=== PATIENT | female | born 1985 | race Caucasian/White ===

== ENCOUNTER 2017-04-16 13:43 | Emergency (ER) | payer OTHER ==
[2017-04-16 17:27] VITALS: BP 118/82
== END 2017-04-16 17:27 | disposition home or self-care (01) ==
LOC: ED 13:43
DX: S46.912A Strain of unspecified muscle, fascia and tendon at shoulder and upper arm level, left arm, initial encounter (principal); R07.89 Other chest pain; R51 Headache; Z88.5 Allergy status to narcotic agent; X58.XXXA Exposure to other specified factors, initial encounter; Y93.89 Activity, other specified; Y99.8 Other external cause status; Y92.89 Other specified places as the place of occurrence of the external cause
CPT/HCPCS: 82962; J1885

== ENCOUNTER 2018-02-10 03:37 | Emergency (ER) | payer OTHER ==
[2018-02-10 04:53] VITALS: BP 145/90
== END 2018-02-10 04:53 | disposition home or self-care (01) ==
LOC: ED 03:37
DX: H66.92 Otitis media, unspecified, left ear (principal); J02.9 Acute pharyngitis, unspecified; Z88.5 Allergy status to narcotic agent
CPT/HCPCS: J1885

== ENCOUNTER 2018-11-23 15:35 | Inpatient (IN) | payer OTHER ==
[~2018-11-23] VITALS: Ht 160 cm; Wt 152.0 kg
[2018-11-23 16:10] VITALS: Ht 160 cm; Wt 152.0 kg
[2018-11-23 18:30] LABS: BASOPHIL % 0.4 % (0-2); PLATELET COUNT 186 x10^3mcL (130-400); RED CELL DISTRIBUTION WIDTH 13.5 % (11.5-14.5)
[2018-11-23 18:51] LABS: CALCIUM 8.8 mg/dL (8.5-10.1); CARBON DIOXIDE 28.9 mmol/L (21-32); CHLORIDE SERUM 104 mmol/L (98-107); CREATININE SERUM 0.7 mg/dL (0.6-1.0); GFR1 > 60 mL/min; GLUCOSE SERUM 111 mg/dL (74-106); POTASSIUM SERUM 3.7 mmol/L (3.5-5.1); SODIUM SERUM 140 mmol/L (136-145)
[2018-11-23 18:55] LABS: ALBUMIN 3.6 g/dL (3.4-5.0); ALKALINE PHOSPHATASE 113 U/L (46-116); ALT/SGPT 55 U/L (14-59); AST/SGOT 40 U/L (15-37); BILIRUBIN TOTAL 0.37 mg/dL (0.20-1.00); TOTAL PROTEIN, SERUM 7.9 g/dL (6.4-8.2)
[2018-11-23 20:58] VITALS: BP 142/79
[2018-11-24 05:29] VITALS: BP 102/53
[2018-11-24 06:18] LABS: BASOPHIL % 0.3 % (0-2); PLATELET COUNT 174 x10^3mcL (130-400); RED CELL DISTRIBUTION WIDTH 13.7 % (11.5-14.5)
[2018-11-24 06:36] LABS: ALKALINE PHOSPHATASE 92 U/L (46-116); ALT/SGPT 57 U/L (14-59); AST/SGOT 33 U/L (15-37); BILIRUBIN TOTAL 0.8 mg/dL (0.20-1.00); CALCIUM 8.9 mg/dL (8.5-10.1); CHLORIDE SERUM 103 mmol/L (98-107); CREATININE SERUM 0.8 mg/dL (0.6-1.0); GFR1 > 60 mL/min; GLUCOSE SERUM 90 mg/dL (74-106); POTASSIUM SERUM 3.6 mmol/L (3.5-5.1); SODIUM SERUM 137 mmol/L (136-145); TOTAL PROTEIN, SERUM 7.3 g/dL (6.4-8.2)
[2018-11-24 06:38] LABS: ALBUMIN 3.2 g/dL (3.4-5.0)
[2018-11-24 09:46] VITALS: BP 121/61
[2018-11-24] MEDS ORDERED: TOPROL XL25 MG PO (12:36)
[2018-11-24 13:55] VITALS: BP 136/79
[2018-11-24 14:13] VITALS: BP 136/79
== END 2018-11-24 15:50 | disposition home or self-care (01) | DRG 199 ==
LOC: ED 15:35 → DU 19:52
PROVIDERS: Emergency Medicine; Internal Medicine Pulmonary Disease; ADMIT Internal Medicine Pulmonary Disease
DX: I16.1 Hypertensive emergency (principal); I24.9 Acute ischemic heart disease, unspecified; E66.01 Morbid (severe) obesity due to excess calories; I10 Essential (primary) hypertension; Z88.5 Allergy status to narcotic agent
CPT/HCPCS: 83880; Q0092

== ENCOUNTER 2018-11-30 23:40 | Emergency (ER) | payer OTHER ==
[~2018-11-30] VITALS: Ht 160 cm; Wt 152.0 kg
[~2018-11-30 23:40] MED LIST: TOPROL XL25 MG PO
[2018-11-30 23:48] VITALS: Ht 160 cm; Wt 152.0 kg
[2018-12-01 02:30] LABS: CALCIUM 8.8 mg/dL (8.5-10.1); CARBON DIOXIDE 28.3 mmol/L (21-32); CHLORIDE SERUM 102 mmol/L (98-107); CREATININE SERUM 0.9 mg/dL (0.6-1.0); GFR1 > 60 mL/min; GLUCOSE SERUM 128 mg/dL (74-106); POTASSIUM SERUM 4.2 mmol/L (3.5-5.1); SODIUM SERUM 137 mmol/L (136-145)
[2018-12-01 02:32] LABS: BASOPHIL % 0.1 % (0-2); PLATELET COUNT 168 x10^3mcL (130-400); RED CELL DISTRIBUTION WIDTH 13.7 % (11.5-14.5)
[2018-12-01 02:34] LABS: ALBUMIN 3.5 g/dL (3.4-5.0); ALKALINE PHOSPHATASE 112 U/L (46-116); ALT/SGPT 34 U/L (14-59); AST/SGOT 19 U/L (15-37); BILIRUBIN TOTAL 0.5 mg/dL (0.20-1.00); LIPASE 116 IU/L (73-393); TOTAL PROTEIN, SERUM 7.6 g/dL (6.4-8.2)
[2018-12-01 03:48] VITALS: BP 132/73
== END 2018-12-01 04:11 | disposition home or self-care (01) ==
LOC: ED 23:40
PROVIDERS: Emergency Medicine
DX: R07.89 Other chest pain (principal); Z88.5 Allergy status to narcotic agent
CPT/HCPCS: 36415; Q0092

== ENCOUNTER 2018-12-11 11:31 | Emergency (ER) | payer OTHER ==
[~2018-12-11] VITALS: Ht 165.1 cm; Wt 147.5 kg
[2018-12-11 11:46] VITALS: Ht 165.1 cm; Wt 147.5 kg
[2018-12-11 13:42] VITALS: BP 153/80
== END 2018-12-11 13:42 | disposition home or self-care (01) ==
LOC: ED 11:31
DX: R51 Headache (principal); I10 Essential (primary) hypertension; Z88.5 Allergy status to narcotic agent

== ENCOUNTER 2018-12-15 14:38 | Emergency (ER) | payer OTHER ==
[~2018-12-15] VITALS: Ht 160 cm; Wt 146.1 kg
[2018-12-15 14:53] VITALS: Ht 160 cm; Wt 146.1 kg
[2018-12-15 18:03] VITALS: BP 125/64
== END 2018-12-15 18:03 | disposition home or self-care (01) ==
LOC: ED 14:38
DX: R51 Headache (principal); R07.89 Other chest pain; I10 Essential (primary) hypertension; Z88.5 Allergy status to narcotic agent
CPT/HCPCS: J1885

== ENCOUNTER 2019-01-08 13:39 | Emergency (ER) | payer OTHER ==
[~2019-01-08] VITALS: Ht 162.6 cm; Wt 144.7 kg
[2019-01-08 13:44] VITALS: Ht 162.6 cm; Wt 144.7 kg
[2019-01-08 14:34] LABS: BASOPHIL % 1.1 % (0-2); PLATELET COUNT 163 x10^3mcL (130-400); RED CELL DISTRIBUTION WIDTH 14.1 % (11.5-14.5)
[2019-01-08 14:57] LABS: CALCIUM 9.3 mg/dL (8.5-10.1); CARBON DIOXIDE 31.8 mmol/L (21-32); CHLORIDE SERUM 101 mmol/L (98-107); CREATININE SERUM 0.8 mg/dL (0.6-1.0); GFR1 > 60 mL/min; GLUCOSE SERUM 104 mg/dL (74-106); POTASSIUM SERUM 3.9 mmol/L (3.5-5.1); SODIUM SERUM 140 mmol/L (136-145)
[2019-01-08 15:01] LABS: ALBUMIN 3.4 g/dL (3.4-5.0); ALKALINE PHOSPHATASE 101 U/L (46-116); ALT/SGPT 56 U/L (14-59); AST/SGOT 31 U/L (15-37); BILIRUBIN TOTAL 0.5 mg/dL (0.20-1.00); TOTAL PROTEIN, SERUM 7.3 g/dL (6.4-8.2)
[2019-01-08 15:43] LABS: AMPHETAMINE QUAL UR NONE DETECTED (See below)
[2019-01-08 15:46] VITALS: BP 106/68
== END 2019-01-08 15:50 | disposition home or self-care (01) ==
LOC: ED 13:39
PROVIDERS: Emergency Medicine
DX: R07.89 Other chest pain (principal); E66.9 Obesity, unspecified; I10 Essential (primary) hypertension; Z68.43 Body mass index [BMI] 50.0-59.9, adult; Z88.5 Allergy status to narcotic agent
CPT/HCPCS: 36415

== ENCOUNTER 2019-03-25 18:01 | Emergency (ER) | payer OTHER ==
[~2019-03-25] VITALS: Ht 160 cm; Wt 137.9 kg
[2019-03-25 18:54] VITALS: Ht 160 cm; Wt 137.9 kg
[2019-03-25 19:27] LABS: BASOPHIL % 0.4 % (0-2); PLATELET COUNT 167 x10^3mcL (130-400); RED CELL DISTRIBUTION WIDTH 14.1 % (11.5-14.5)
[2019-03-25 19:36] LABS: CALCIUM 9.1 mg/dL (8.5-10.1); CARBON DIOXIDE 27.3 mmol/L (21-32); CHLORIDE SERUM 102 mmol/L (98-107); CREATININE SERUM 0.9 mg/dL (0.6-1.0); GFR1 > 60 mL/min; GLUCOSE SERUM 110 mg/dL (74-106); POTASSIUM SERUM 3.8 mmol/L (3.5-5.1); SODIUM SERUM 139 mmol/L (136-145)
[2019-03-25 19:40] LABS: ALKALINE PHOSPHATASE 114 U/L (46-116); ALT/SGPT 56 U/L (14-59); AST/SGOT 28 U/L (15-37); BILIRUBIN TOTAL 0.65 mg/dL (0.20-1.00); LIPASE 109 IU/L (73-393); TOTAL PROTEIN, SERUM 7.3 g/dL (6.4-8.2)
[2019-03-25 19:41] LABS: ALBUMIN 3.3 g/dL (3.4-5.0)
[2019-03-25 23:31] LABS: UA SPECIFIC GRAVITY <=1.005 (1.005-1.035); microscopic required? YES; urine erythrocyte NEGATIVE (NEGATIVE)
[2019-03-26 00:23] VITALS: BP 140/84
== END 2019-03-26 00:23 | disposition home or self-care (01) ==
LOC: ED 18:01
PROVIDERS: Emergency Medicine
DX: K80.70 Calculus of gallbladder and bile duct without cholecystitis without obstruction (principal); I10 Essential (primary) hypertension; E66.01 Morbid (severe) obesity due to excess calories; Z68.43 Body mass index [BMI] 50.0-59.9, adult; Z88.5 Allergy status to narcotic agent
CPT/HCPCS: J2405; J3010; J7030

== ENCOUNTER 2019-04-22 11:21 | Emergency (ER) | payer OTHER ==
[~2019-04-22] VITALS: Ht 160 cm; Wt 135.2 kg
[2019-04-22 11:27] VITALS: Ht 160 cm; Wt 135.2 kg
[2019-04-22 11:59] LABS: CALCIUM 8.9 mg/dL (8.5-10.1); CARBON DIOXIDE 24.2 mmol/L (21-32); CHLORIDE SERUM 105 mmol/L (98-107); CREATININE SERUM 0.8 mg/dL (0.6-1.0); GFR1 > 60 mL/min; GLUCOSE SERUM 97 mg/dL (74-106); POTASSIUM SERUM 4.1 mmol/L (3.5-5.1); SODIUM SERUM 140 mmol/L (136-145)
[2019-04-22 12:00] LABS: BASOPHIL % 0.4 % (0-2); PLATELET COUNT 157 x10^3mcL (130-400); RED CELL DISTRIBUTION WIDTH 13.4 % (11.5-14.5)
[2019-04-22 12:10] LABS: ALBUMIN 3.5 g/dL (3.4-5.0); ALKALINE PHOSPHATASE 104 U/L (46-116); ALT/SGPT 33 U/L (14-59); AST/SGOT 20 U/L (15-37); BILIRUBIN TOTAL 0.69 mg/dL (0.20-1.00); TOTAL PROTEIN, SERUM 7.4 g/dL (6.4-8.2)
[2019-04-22 12:41] LABS: microscopic required? YES; urine erythrocyte NEGATIVE (NEGATIVE)
[2019-04-22 12:44] LABS: HDL CHOLESTEROL 39 mg/dL (40-60); LIPASE 85 IU/L (73-393)
[2019-04-22 12:48] LABS: CHOLESTEROL 133 mg/dL (<200)
[2019-04-22 13:17] VITALS: BP 123/64
== END 2019-04-22 14:59 | disposition home or self-care (01) ==
LOC: ED 11:21
PROVIDERS: Emergency Medicine
DX: K80.70 Calculus of gallbladder and bile duct without cholecystitis without obstruction (principal); I10 Essential (primary) hypertension; E66.01 Morbid (severe) obesity due to excess calories; Z68.43 Body mass index [BMI] 50.0-59.9, adult; Z88.5 Allergy status to narcotic agent
CPT/HCPCS: 36415; Q0092

== ENCOUNTER 2020-02-12 01:54 | Emergency (ER) | payer OTHER ==
[~2020-02-12] VITALS: Ht 160 cm; Wt 143.8 kg
[2020-02-12 02:03] VITALS: Ht 160 cm; Wt 143.8 kg
[2020-02-12 04:22] LABS: BASOPHIL % 0.3 % (0-2); PLATELET COUNT 143 x10^3mcL (130-400); RED CELL DISTRIBUTION WIDTH 13.3 % (11.5-14.5)
[2020-02-12 04:27] LABS: CARBON DIOXIDE 30.2 mmol/L (21-32); CHLORIDE SERUM 100 mmol/L (98-107); CREATININE SERUM 0.9 mg/dL (0.6-1.0); GFR1 > 60 mL/min; GLUCOSE SERUM 133 mg/dL (74-106); POTASSIUM SERUM 3.6 mmol/L (3.5-5.1); SODIUM SERUM 137 mmol/L (136-145)
[2020-02-12 04:31] LABS: ALKALINE PHOSPHATASE 117 U/L (46-116); ALT/SGPT 31 U/L (14-59); AST/SGOT 18 U/L (15-37); BILIRUBIN TOTAL 0.59 mg/dL (0.20-1.00)
[2020-02-12 04:38] LABS: ALBUMIN 3.2 g/dL (3.4-5.0)
[2020-02-12 05:22] LABS: UA SPECIFIC GRAVITY 1.025 (1.005-1.035); microscopic required? YES
[2020-02-12 05:23] LABS: urine erythrocyte TRACE (NEGATIVE)
[2020-02-12 06:11] VITALS: BP 103/55
== END 2020-02-12 06:11 | disposition home or self-care (01) ==
LOC: ED 01:54
PROVIDERS: Emergency Medicine
DX: N20.0 Calculus of kidney (principal); N39.0 Urinary tract infection, site not specified; E66.9 Obesity, unspecified; I10 Essential (primary) hypertension; Z68.43 Body mass index [BMI] 50.0-59.9, adult; Z88.5 Allergy status to narcotic agent
CPT/HCPCS: J0696; J1885; J2405; J7030; J7060

== ENCOUNTER 2020-05-23 16:17 | Emergency (ER) | payer OTHER ==
[~2020-05-23] VITALS: Ht 160 cm; Wt 142.9 kg
[2020-05-23 17:52] LABS: CALCIUM 9.2 mg/dL (8.5-10.1); CARBON DIOXIDE 29.8 mmol/L (21-32); CHLORIDE SERUM 99 mmol/L (98-107); CREATININE SERUM 0.9 mg/dL (0.6-1.0); GFR1 > 60 mL/min; GLUCOSE SERUM 129 mg/dL (74-106); POTASSIUM SERUM 3.7 mmol/L (3.5-5.1); SODIUM SERUM 135 mmol/L (136-145)
[2020-05-23 17:53] LABS: BASOPHIL % 0.1 % (0-2); PLATELET COUNT 176 x10^3mcL (130-400)
[2020-05-23 20:27] VITALS: BP 129/77
== END 2020-05-23 20:27 | disposition home or self-care (01) ==
LOC: ED 16:17
PROVIDERS: Emergency Medicine
DX: L02.31 Cutaneous abscess of buttock (principal); I10 Essential (primary) hypertension; Z88.5 Allergy status to narcotic agent
CPT/HCPCS: J0295; J1885; J2001; J7030

== ENCOUNTER 2020-05-26 12:19 | Emergency (ER) | payer OTHER ==
[~2020-05-26] VITALS: Ht 160 cm; Wt 144.7 kg
[2020-05-26 12:24] VITALS: Ht 160 cm; Wt 144.7 kg
[2020-05-26 13:06] VITALS: BP 135/70
== END 2020-05-26 12:55 | disposition home or self-care (01) ==
LOC: ED 12:19
DX: L02.31 Cutaneous abscess of buttock (principal); Z88.5 Allergy status to narcotic agent

== ENCOUNTER 2020-08-30 15:59 | Emergency (ER) | payer OTHER ==
[~2020-08-30] VITALS: Ht 160 cm; Wt 148.8 kg
[2020-08-30 16:20] VITALS: Ht 160 cm; Wt 148.8 kg
[2020-08-30 17:21] LABS: BASOPHIL % 1.1 % (0.2-1.3); PLATELET COUNT 185 x10^3mcL (179-408); RED CELL DISTRIBUTION WIDTH 13.8 % (12.3-17.7)
[2020-08-30 17:29] LABS: CALCIUM 8.9 mg/dL (8.5-10.1); CHLORIDE SERUM 103 mmol/L (98-107); CREATININE SERUM 0.8 mg/dL (0.6-1.0); GFR1 > 60 mL/min; GLUCOSE SERUM 103 mg/dL (74-106); POTASSIUM SERUM 4.3 mmol/L (3.5-5.1); SODIUM SERUM 139 mmol/L (136-145)
[2020-08-30 17:34] LABS: ALBUMIN 3.3 g/dL (3.4-5.0); ALKALINE PHOSPHATASE 96 U/L (46-116); ALT/SGPT 36 U/L (14-59); AST/SGOT 16 U/L (15-37); BILIRUBIN TOTAL 0.59 mg/dL (0.20-1.00); LIPASE 121 IU/L (73-393); TOTAL PROTEIN, SERUM 7.4 g/dL (6.4-8.2)
[2020-08-30 17:58] VITALS: BP 132/90
== END 2020-08-30 17:58 | disposition home or self-care (01) ==
LOC: ED 15:59
DX: K29.70 Gastritis, unspecified, without bleeding (principal); Z88.5 Allergy status to narcotic agent; Z90.49 Acquired absence of other specified parts of digestive tract

== ENCOUNTER 2020-11-01 19:02 | Emergency (ER) | payer OTHER ==
[~2020-11-01] VITALS: Ht 160 cm; Wt 150.6 kg
[2020-11-01 19:13] VITALS: Ht 160 cm; Wt 150.6 kg
[2020-11-01] MEDS ORDERED: NAPROSYN500 MG PO (19:51)
[2020-11-01 20:18] VITALS: BP 129/90
== END 2020-11-01 20:18 | disposition home or self-care (01) ==
LOC: ED 19:02
DX: M54.9 Dorsalgia, unspecified (principal); M62.830 Muscle spasm of back; Z88.6 Allergy status to analgesic agent; Z90.49 Acquired absence of other specified parts of digestive tract